=== PATIENT | female | born 1985 | race Caucasian/White ===

== ENCOUNTER 2019-09-28 12:03 | Emergency (ER) | payer OTHER ==
[~2019-09-28] VITALS: Ht 157.5 cm; Wt 81.7 kg
[~2019-09-28 12:03] MED LIST: ACYC400; ALBU90OI INH; ALBU90OI61 INH; AZIT250 PO; BIRTH CONTROL; CEPH500 PO; CIPR500 PO; CODGUAEL PO; CYCL10 PO; DULO30 PO; ERYSTE250 PO; HYDACE5 PO; MULVITMINE PO; OXYC10ER PO; PRED20 PO; PROM12.5S PR; PROM25 PO; RXONDA4ODT MM; Verotin-Gr Cap1 EACH PO; Zofran Odt4 MG PO; Zofran4 MG PO; [UNRECOGNIZED DRUG - REMARK]
[2019-09-28] MEDS ORDERED: INHALER (12:42)
[2019-09-28 12:52] LABS: Source, Urine Clean Catch
[2019-09-28 12:56] LABS: Bilirubin, Urine Neg (Neg); Blood, Urine Neg (Neg); Glucose Qualitative, Urine Neg (Neg); Ketones, Urine Neg (Neg); Leukocyte Esterase, Urine Neg (Neg); Nitrite, Urine Neg (Neg); Protein, Urine Neg (Neg); Specific Gravity, Urine 1.005 (1.003-1.022); Urobilinogen, Urine NORM (Normal)
[2019-09-28 13:01] LABS: Appearance, Urine Clear (Clear); Color, Urine Yellow (P-Yellow)
[2019-09-28] MEDS ORDERED: IBUP800 PO (13:25)
[2019-09-28] MEDS ORDERED: Cyclobenzaprine5 MG PO (13:25)
== END 2019-09-28 13:34 | disposition home or self-care (01) ==
LOC: ER 12:03
PROVIDERS: Physician Assistant
DX: S16.1XXA Strain of muscle, fascia and tendon at neck level, initial encounter (principal); M62.830 Muscle spasm of back; F32.9 Major depressive disorder, single episode, unspecified; F17.210 Nicotine dependence, cigarettes, uncomplicated; Z88.5 Allergy status to narcotic agent; Z88.0 Allergy status to penicillin; Z79.899 Other long term (current) drug therapy; X58.XXXA Exposure to other specified factors, initial encounter
CPT/HCPCS: 81003; 81025; 99283

== ENCOUNTER → 2021-02-24 | Outpatient (CLI) | payer OTHER ==
[~2021-02-24] MED LIST changes: +Cyclobenzaprine5 MG PO; +IBUP800 PO; +INHALER
[2021-02-24 17:51] LABS: BASOPHILS ABSOLUTE AUTO 0.04 K/mm3 (0.00-0.23); BASOPHILS PERCENT AUTO 1 % (0-2); EOSINOPHILS ABSOLUTE AUTO 0.28 K/mm3 (0.00-0.68); EOSINOPHILS PERCENT AUTO 4 % (0-6); Hematocrit 47.5 % (33.0-51.0); Hemoglobin 14.7 g/dL (11.5-16.0); IMMATURE GRAN ABSOLUTE AUTO 0.01 K/mm3 (0.00-0.10); IMMATURE GRAN PERCENT AUTO 0 % (0-1); LYMPHOCYTES ABSOLUTE AUTO 1.47 K/mm3 (0.84-5.20); LYMPHOCYTES PERCENT AUTO 20 % (21-46); MONOCYTES ABSOLUTE AUTO 0.63 K/mm3 (0.16-1.47); MONOCYTES PERCENT AUTO 8 % (4-13); Mean Corpuscular HGB 28.8 pg (26.0-34.0); Mean Corpuscular HGB Conc 30.9 g/dL (31.5-36.5); Mean Corpuscular Volume 93 fL (80-100); Mean Platelet Volume 12.2 fL (9.1-12.4); NEUTROPHILS ABSOLUTE AUTO 5.05 K/mm3 (1.96-9.15); NEUTROPHILS PERCENT AUTO 68 % (41-73); Platelet Count 281 K/mm3 (150-400); RDW Coefficient Variation 13.1 % (11.7-14.2); RDW Standard Deviation 44.4 fL (35.1-46.3); White Blood Cell Count 7.48 K/mm3 (4.00-11.30)
[2021-02-24 21:23] LABS: Alanine Aminotransfer (ALT/SGP 35 U/L (12-78); Albumin, Blood 3.8 g/dL (3.4-5.0); Alk Phos 84 U/L (50-136); Anion Gap 8 mmol/L (6-16); Aspartate Aminotrans (AST/SGOT 22 U/L (12-37); Bilirubin, Total 0.3 mg/dL (0.1-1.0); Blood Urea Nitrogen 10 mg/dL (8-24); Bun/Creatinine Ratio 12.1 (12.0-20.0); CHOL/HDL RATIO 2.4; CO2, Blood 26 mmol/L (21-32); Calcium, Blood 8.7 mg/dL (8.5-10.1); Chloride, Blood 109 mmol/L (98-108); Cholesterol 197 mg/dL (50-200); Creatinine, Blood 0.82 mg/dL (0.40-1.00); Globulin, Blood 3.9 g/dL (2.2-4.0); Glomerular Filtration Rate >60 (60-); Glucose, Blood 83 mg/dL (70-99); HDL Cholesterol 82 mg/dL (>39); LDL/HDL RATIO 1.2; Low Density Lipoprotein Chol 97 mg/dL (0-110); Potassium, Blood 4.2 mmol/L (3.5-5.5); Sodium, Blood 143 mmol/L (136-145); Thyroid Stimulating Hormone 0.649 uIU/mL (0.360-4.800); Total Protein, Blood 7.7 g/dL (6.4-8.2); Triglycerides 89 mg/dL (30-140); Very Low Density Lipoprot Chol 17 mg/dL (6-28)
== END | disposition home or self-care (01) ==
LOC: LAB 15:37 → LAB SHORT 15:37
PROVIDERS: Family Medicine
DX: Z13.6 Encounter for screening for cardiovascular disorders (principal); E66.9 Obesity, unspecified
CPT/HCPCS: 80053; 80061; 84443; 85025

== ENCOUNTER 2021-11-17 10:20 | Day surgery (SDC) | payer OTHER ==
[2021-11-15 13:52] LABS: BASOPHILS ABSOLUTE AUTO 0.03 K/mm3 (0.00-0.23); BASOPHILS PERCENT AUTO 0 % (0-2); EOSINOPHILS ABSOLUTE AUTO 0.25 K/mm3 (0.00-0.68); EOSINOPHILS PERCENT AUTO 4 % (0-6); Hematocrit 46.3 % (33.0-51.0); Hemoglobin 14.4 g/dL (11.5-16.0); IMMATURE GRAN ABSOLUTE AUTO 0.01 K/mm3 (0.00-0.10); IMMATURE GRAN PERCENT AUTO 0 % (0-1); LYMPHOCYTES PERCENT AUTO 23 % (21-46); MONOCYTES ABSOLUTE AUTO 0.68 K/mm3 (0.16-1.47); MONOCYTES PERCENT AUTO 10 % (4-13); Mean Corpuscular HGB 27.7 pg (26.0-34.0); Mean Corpuscular HGB Conc 31.1 g/dL (31.5-36.5); Mean Corpuscular Volume 89 fL (80-100); Mean Platelet Volume 12.4 fL (9.1-12.4); NEUTROPHILS PERCENT AUTO 63 % (41-73); Platelet Count 235 K/mm3 (150-400); RDW Coefficient Variation 13.3 % (11.7-14.2); RDW Standard Deviation 43.3 fL (35.1-46.3); White Blood Cell Count 6.97 K/mm3 (4.00-11.30)
[2021-11-15 15:20] LABS: Anion Gap 6 mmol/L (6-16); Blood Urea Nitrogen 6 mg/dL (8-24); Bun/Creatinine Ratio 7.3 (12.0-20.0); CO2, Blood 24 mmol/L (21-32); Chloride, Blood 108 mmol/L (98-108); Creatinine, Blood 0.83 mg/dL (0.40-1.00); Glomerular Filtration Rate >60 (60-); Glucose, Blood 77 mg/dL (70-99); Potassium, Blood 4.4 mmol/L (3.5-5.5); Sodium, Blood 138 mmol/L (136-145)
[~2021-11-17] VITALS: Ht 157.5 cm; Wt 86.6 kg
[~2021-11-17 10:20] MED LIST changes: +AFTERA1.5 M1 PO; +BUPR100 PO; +Ventolin5 MG/1 ML INH
--- NOTE | 2021-11-17 11:20 | NUR ---
[facility] in [facility] warming gown applied. Surgical site prepped with 2% Chlorhexidine cloth wipe. History, Chart, Medications and Allergies reviewed before start of procedure.Lungs clear T/O to Auscultation. Patient confirms NPO status and agrees with scheduled surgery. Pre-Op teaching done. Pt verbalizes understanding. Patient reports completing Chlorhexadine shower X2 prior to admission to hospital.
--- NOTE | 2021-11-17 14:13 | NUR ---
11/17/21 1413 Cori Zacarias PRIOR TO SURGERY START BONDS TABLE IN PLACE & SECURE TO PROTECT PATIENT'S FACE,HEAD, AND INTUBATION TUBE.
[2021-11-17] MEDS ORDERED: DOCU100 PO (18:01)
--- NOTE | 2021-11-17 18:34 | NUR ---
PATIENT CURRENTLY LYING IN BED WITH NO SIGNS OR SYMPTOMS ACUTE DISTRESS NOTED. PATIENT ARRIVED TO THE FLOOR FROM PACU AT ABOUT 1600 TODAY. PATIENT IMMEDIATELY ASSSITED TO THE BATHROOM AND VOIDED. LAP SITES X 3 CDI TO ABD. PATIENT HAS BEEN MEDICATED FOR PAIN WHICH SEEMS TO BE EFFECTIVE. PATIENT TOLERATING PO INTAKE. PATIENT MOTHER WILL BE PICKING UP PATIENT TONIGHT AT DC. WILL PASS ON TO NEXT SHIFT. PATIENT DC IS COMPLETED AND PRINTED.
--- NOTE | 2021-11-17 20:13 | NUR ---
DISCHARGE SUMMARY: PT DISCHARGED HOME WITH MOTHER AT 2009. VSS PRIOR TO DC. PAIN AT A TOLERABLE LEVEL. INCISION SITES WNL. PT ABLE TO AMBULATE AND VOID. DISCHARGE INSTRUCTIONS GIVEN TO PATIENT AND MOTHER. QUESTIONS ANSWERED AND PT SENT HOME WITH ALL BELONGININGS. PT AWARE TO CALL SURGICAL FLOOR WITH ANY OTHER ADDITIONAL QUESTIONS.
== END 2021-11-17 20:10 | disposition home or self-care (01) ==
LOC: ORSCMMR 10:20 → ORD 12:00 → SURS 16:35 → ORSCMMR 20:10
PROVIDERS: Obstetrics & Gynecology
PROC: 0UT94ZZ Resection of Uterus, Percutaneous Endoscopic Approach (ICD-10-PCS; principal; 2021-11-17 12:00)
PROC: 0UT74ZZ Resection of Bilateral Fallopian Tubes, Percutaneous Endoscopic Approach (ICD-10-PCS; principal; 2021-11-17 12:00)
PROC: 8E0W4CZ Robotic Assisted Procedure of Trunk Region, Percutaneous Endoscopic Approach (ICD-10-PCS; principal; 2021-11-17 12:00)
DX: N92.0 Excessive and frequent menstruation with regular cycle (principal); D25.9 Leiomyoma of uterus, unspecified; N94.6 Dysmenorrhea, unspecified; N81.2 Incomplete uterovaginal prolapse; N80.0 Endometriosis of uterus; J45.909 Unspecified asthma, uncomplicated; Z87.891 Personal history of nicotine dependence; E66.9 Obesity, unspecified; Z68.35 Body mass index [BMI] 35.0-35.9, adult; Z79.899 Other long term (current) drug therapy
CPT/HCPCS: 58571; 57425; S2900; 36415; 80048; 84703; 85025; 86850; 86900; 86901; 88307; A9270; J0690; J1100; J1885; J2250; J2370; J2405; J2550; J2704; J3010; J7120

== ENCOUNTER → 2025-08-03 | Outpatient (CLI) | payer OTHER ==
[~2025-08-03] MED LIST changes: +DOCU100 PO
[2025-08-03 21:37] LABS: Alanine Aminotransfer (ALT/SGP 26.0 U/L (12-78); Albumin, Blood 4.1 g/dL (3.4-5.0); Albumin/Globulin Ratio 1.3 (0.8-1.8); Anion Gap 9.0 mmol/L (3-11); Aspartate Aminotrans (AST/SGOT 19.0 U/L (12-37); Bilirubin, Total 0.5 mg/dL (0.1-1.0); Blood Urea Nitrogen 9.0 mg/dL (8-24); CO2, Blood 26.0 mmol/L (21-32); Calcium, Blood 9.1 mg/dL (8.5-10.1); Chloride, Blood 104.0 mmol/L (98-108); Creatinine, Blood 0.82 mg/dL (0.40-1.00); Globulin, Blood 3.1 g/dL (2.2-4.0); Glucose, Blood 89.0 mg/dL (70-99); Potassium, Blood 3.9 mmol/L (3.5-5.5); Sodium, Blood 135.0 mmol/L (136-145); Total Protein, Blood 7.2 g/dL (6.4-8.2)
== END ==
LOC: LAB 16:37 → LAB SHORT 16:37
DX: E55.9 Vitamin D deficiency, unspecified (principal)
CPT/HCPCS: 80053; 82306